=== PATIENT | female | born 1975 | race Caucasian/White ===

== ENCOUNTER 2017-10-28 12:43 | Inpatient (IN) | payer OTHER ==
[~2017-10-28] VITALS: Ht 157.5 cm; Wt 63.2 kg
[2017-10-28 13:43] LABS: BASOPHIL % 0.3 % (0-2); PLATELET COUNT 279 x10^3mcL (130-400); RED CELL DISTRIBUTION WIDTH 14.3 % (11.5-14.5)
[2017-10-28 14:05] LABS: CARBON DIOXIDE 26.2 mmol/L (21-32); CHLORIDE SERUM 105 mmol/L (98-107); CREATININE SERUM 0.7 mg/dL (0.6-1.0); GFR1 > 60 mL/min; GLUCOSE SERUM 92 mg/dL (74-106); POTASSIUM SERUM 4.2 mmol/L (3.5-5.1); SODIUM SERUM 137 mmol/L (136-145)
[2017-10-28 14:09] LABS: ALBUMIN 3.8 g/dL (3.4-5.0); ALKALINE PHOSPHATASE 96 U/L (46-116); ALT/SGPT 27 U/L (14-59); AMYLASE 87 U/L (25-115); AST/SGOT 24 U/L (15-37); BILIRUBIN TOTAL 0.22 mg/dL (0.20-1.00); CHOLESTEROL 194 mg/dL (<200); HDL CHOLESTEROL 39 mg/dL (40-60); LIPASE 214 IU/L (73-393); TOTAL PROTEIN, SERUM 7.3 g/dL (6.4-8.2)
[2017-10-28 14:27] LABS: UA SPECIFIC GRAVITY 1.025 (1.005-1.035); microscopic required? YES; urine erythrocyte TRACE (NEGATIVE)
[2017-10-28 14:37] LABS: AMPHETAMINE QUAL UR NONE DETECTED (NEG <=1000)
[2017-10-28 16:25] LABS: MAGNESIUM 2.2 mg/dL (1.8-2.4); PHOSPHOROUS 3.4 mg/dL (2.5-4.9)
[2017-10-28 16:39] LABS: T3 TOTAL 0.97 ng/mL
[2017-10-28 16:59] VITALS: BP 106/71
[2017-10-28 17:05] VITALS: Ht 157.5 cm; Wt 63.2 kg
[2017-10-28 17:29] LABS: FREE T4 0.98 ng/dL (0.76-1.46); FREE THYROXINE INDEX 2.8 ug/dL (1.4-4.5); T4(THYROXINE) 8.8 ug/dL (4.7-13.3)
[2017-10-28 20:57] VITALS: BP 93/42
[2017-10-29 05:51] VITALS: BP 97/53
[2017-10-29 06:13] LABS: CALCIUM 7.9 mg/dL (8.5-10.1); CARBON DIOXIDE 27.7 mmol/L (21-32); CHLORIDE SERUM 110 mmol/L (98-107); CREATININE SERUM 0.8 mg/dL (0.6-1.0); GFR1 > 60 mL/min; GLUCOSE SERUM 86 mg/dL (74-106); POTASSIUM SERUM 4.3 mmol/L (3.5-5.1); SODIUM SERUM 144 mmol/L (136-145)
[2017-10-29 06:22] LABS: BASOPHIL % 0.5 % (0-2); PLATELET COUNT 219 x10^3mcL (130-400); RED CELL DISTRIBUTION WIDTH 14.4 % (11.5-14.5)
[2017-10-29 09:15] VITALS: BP 99/96
[2017-10-29] MEDS ORDERED: NITROFURANTOIN100 MG PO (10:36)
[2017-10-29] MEDS ORDERED: LAC PO (10:36)
[2017-10-29] MEDS ORDERED: PRI20 PO (10:50)
[2017-10-29 11:16] VITALS: BP 99/96
== END 2017-10-29 12:15 | disposition home or self-care (01) | DRG 243 ==
LOC: ED 12:43 → DU 15:35
PROVIDERS: Emergency Medicine; Family Medicine
DX: K21.9 Gastro-esophageal reflux disease without esophagitis (principal); N17.0 Acute kidney failure with tubular necrosis; N39.0 Urinary tract infection, site not specified; R20.0 Anesthesia of skin
CPT/HCPCS: 83880; 84439; G0480; J0696; J1885; J2060; J7030; Q0092

== ENCOUNTER 2017-11-11 17:01 | Emergency (ER) | payer OTHER ==
[~2017-11-11] VITALS: Ht 157.5 cm; Wt 61.2 kg
[~2017-11-11 17:01] MED LIST: LAC PO; NITROFURANTOIN100 MG PO; PRI20 PO
[2017-11-11 17:05] VITALS: Ht 157.5 cm; Wt 61.2 kg
[2017-11-11 18:02] VITALS: BP 117/80
== END 2017-11-11 18:02 | disposition home or self-care (01) ==
LOC: ED 17:01
DX: N39.0 Urinary tract infection, site not specified (principal)
CPT/HCPCS: J1885; Q0162

== ENCOUNTER 2018-06-21 16:14 | Emergency (ER) | payer OTHER ==
[~2018-06-21] VITALS: Ht 167.6 cm; Wt 62.6 kg
[2018-06-21 16:31] VITALS: Ht 167.6 cm; Wt 62.6 kg
[2018-06-21 18:16] VITALS: BP 142/94
== END 2018-06-21 18:10 | disposition home or self-care (01) ==
LOC: ED 16:14
DX: T78.40XA Allergy, unspecified, initial encounter (principal); R03.0 Elevated blood-pressure reading, without diagnosis of hypertension; X58.XXXA Exposure to other specified factors, initial encounter
CPT/HCPCS: Q0163

== ENCOUNTER 2019-01-19 09:35 | Emergency (ER) | payer OTHER ==
[~2019-01-19] VITALS: Ht 157.5 cm; Wt 60.3 kg
[2019-01-19 09:38] VITALS: Ht 157.5 cm; Wt 60.3 kg
[2019-01-19 10:49] VITALS: BP 128/75
== END 2019-01-19 10:49 | disposition home or self-care (01) ==
LOC: ED 09:35
DX: H66.93 Otitis media, unspecified, bilateral (principal)

== ENCOUNTER 2019-02-04 12:59 | Inpatient (IN) | payer OTHER ==
[~2019-02-04] VITALS: Ht 157.5 cm; Wt 61.7 kg
[2019-02-04 13:12] VITALS: Ht 157.5 cm; Wt 61.7 kg
--- NOTE | 2019-02-04 13:37 | NUR ---
PT TO ED FOR EVAL OF LOWER ABD PAIN RADIATING TO L FLANK. ABD PAIN STARTED APPROX 1 WEEK AGO.. PT HAD BEEN ON FLAGYL FOR 2 WEEKS AND ENDED COURSE APPROX 01/27. FREQUENCY STARTED LAST NIGHT. DENIES PAIN WITH URINATION.
--- NOTE | 2019-02-04 13:40 | NUR ---
ER MD AT bedside for evaluations/assessments.viviane solis.adult female relative bedside.awaits revaluations.
--- NOTE | 2019-02-04 14:09 | NUR ---
IV access started aseptically with blood drawn/sent to lab,ivf started.iv meds given per er md ordewrs.pt tolerated procedures with no incidents.awaits test results,reevaluations.viviane solis.adult female friend bedside.
[2019-02-04 14:22] LABS: PLATELET COUNT 321 x10^3mcL (130-400)
[2019-02-04 14:32] LABS: RED CELL DISTRIBUTION WIDTH 14.7 % (11.5-14.5)
--- NOTE | 2019-02-04 14:38 | NUR ---
AMBULATED TO/FROM BATHROOM WITH SOME ASSIST.PT TOLERATED PROCEDURES WITH NO INCIDents.went to ct test area via wheelchair.aao,nad.await test results,reevaluations.adult female friend assisting.
--- NOTE | 2019-02-04 14:50 | NUR ---
BACK FROM CT VIA W/C.
[2019-02-04 14:51] LABS: BAND NEUTROPHIL 0 % (0-10); BASOPHIL 0 % (0-2); MONOCYTE 4 % (0-7); SEGMENTED NEUTROPHILS 65 % (37-75)
[2019-02-04 14:52] LABS: PLATELET MORPHOLOGY PLATELETS NORMAL; rbc morphology (normal/abnorm) NORMAL (NORMAL)
[2019-02-04 15:04] LABS: CALCIUM 8.3 mg/dL (8.5-10.1); CARBON DIOXIDE 25.6 mmol/L (21-32); CHLORIDE SERUM 105 mmol/L (98-107); GFR1 > 60 mL/min; GLUCOSE SERUM 84 mg/dL (74-106); POTASSIUM SERUM 3.7 mmol/L (3.5-5.1); SODIUM SERUM 141 mmol/L (136-145)
[2019-02-04 15:08] LABS: ALBUMIN 3.7 g/dL (3.4-5.0); ALKALINE PHOSPHATASE 90 U/L (46-116); ALT/SGPT 37 U/L (14-59); AMYLASE 78 U/L (25-115); AST/SGOT 28 U/L (15-37); BILIRUBIN TOTAL 0.27 mg/dL (0.20-1.00); LIPASE 167 IU/L (73-393); TOTAL PROTEIN, SERUM 7.6 g/dL (6.4-8.2)
--- NOTE | 2019-02-04 15:30 | NUR ---
PT AMBULATED TO/FROM BATHROOM ESCORTED BY ADULT FEMALE FRIEND.PT TOLERATED PROCEDURES WITH NON INCIDENTS.AWAITS ER MD REEVALUATIONS.CHAPARRITA ZURITA.
--- NOTE | 2019-02-04 16:15 | NUR ---
[facility]ADULT FEMALE FRIEND BEDSIDE.AWAITS REEVALUATIONS.
--- NOTE | 2019-02-04 16:29 | NUR ---
PT ENDORSED TO/ACCEPTED BY EVERARDO CARLTON.AWAITS TRANSPORT SERVICES,REEVALUATIONS.
--- NOTE | 2019-02-04 16:31 | NUR ---
RECEIVED REPORT FROM OJ IN ED. AWAITING PATIENT ARRIVAL TO FLOOR.
--- NOTE | 2019-02-04 16:35 | NUR ---
BELONGINGS OF PT TAKEN HOME BY ADULT FEMALE FRIEND.WITH PT PERMISSION.
[2019-02-04 16:40] LABS: CHOLESTEROL/HDL RATIO 5.2; PHOSPHOROUS 3.8 mg/dL (2.5-4.9)
[2019-02-04 16:57] VITALS: BP 108/64
--- NOTE | 2019-02-04 17:04 | NUR ---
RECEIVED PT FROM ER, PT ADMIT FOR INTRACTABLE ABD PAIN, INFECTIOUS DIARRHEA, PT IS A/O X4, VERBAL RESPONSIVE, LUNG SOUND CLEAR BILATERAL, NO COUGH, NO SOB PT DENY ANY CHEST PAIN OR DISCOMFORT, BOWEL SOUND PRESENT ALL 4 QUADRANTS, HYPERACTIVE, DISTENTED. C/O PAIN AT LEFT UPPER QUADRANT, ALSO C/O NAUSEA. PEDAL PULSE PRESENT BOTH FEET, NO EDEMA, IV AT RIGHT AC,NO LEAKING, NO INFILTRAITON. ALL ADLS ASSIST ALL NEED MET, CALL LIGHT IN REACH, WILL CONTINUE TO MONITOR.
[2019-02-04 17:49] LABS: FREE T4 1.03 ng/dL (0.76-1.46); FREE THYROXINE INDEX 2.5 ug/dL (1.4-4.5); T4(THYROXINE) 6.9 ug/dL (4.7-13.3)
[2019-02-04 17:50] LABS: T3 TOTAL 1.27 ng/mL
[2019-02-04 18:54] LABS: UA SPECIFIC GRAVITY <=1.005 (1.005-1.035); microscopic required? YES; urine erythrocyte 3+ (NEGATIVE)
--- NOTE | 2019-02-04 18:57 | NUR ---
DR CRARERA PAGED FOR PAIN MED. PT C/O ABD PAIN 10/15 AND INCREASING.
--- NOTE | 2019-02-04 19:29 | NUR ---
REPORT GIVEN TO YAZAN CARLTON. PATIENT RESTING IN BED C/O ABD PAIN 10/15. INFORMED PATIENT THAT WAS PAGED FOR PAIN MEDICATION. AWAITING ORDERS. ALL QUESTIONS AND CONCERNS ADDRESSED. ALL CARES ENDORSED.
[2019-02-04 19:36] LABS: AMPHETAMINE QUAL UR NONE DETECTED (See below)
--- NOTE | 2019-02-04 19:54 | NUR ---
RECIEVED PATIENT AT STAT OF SHIFT A/O X4, MS, NO SOB ON RA. REPORTING 5/10 ABDOMINAL PAIN THAT RADIATES TO HER BACK. ON CLEAR LIQ DIET, BUT EDUCATED ON NPO DIET AFTER MIDNIGHT FOR ULTRASOUND IN THE MORNING. ABDOMEN IS ROUND AND SOFT, BS HYPERACTIVE. STOOL SAMPLE STILL NEEDS TO BE OBTAINED. IV TO RAC IS INFUSING WITHOUT ERYTHEMA OR INFILTRATION. BED LOCKED AND IN LOWEST POSIITON. CALL LIGHT WITHIN REACH.
--- NOTE | 2019-02-04 20:11 | NUR ---
PATIENT GIVEN NORCO PER EMAR FOR REPORT OF 5/10 PAIN TO ABDOMEN RADIATING TO BACK.
[2019-02-04 21:00] VITALS: BP 119/73
--- NOTE | 2019-02-05 01:47 | NUR ---
PATIENT IS AWAKE REPORTING 4/10 ABDOMINAL PAIN. PATIENT STATES SHE DOES NOT WANT PAIN MEDICATION AT THIS TIME. IV INFUSING WELL WITHOUT ERYTHEMA OR INFILTRATION. CALL LIGHT WITHIN REACH.
[2019-02-05 05:30] VITALS: BP 112/55
--- NOTE | 2019-02-05 05:36 | NUR ---
PATIENT GIVEN NORCO PER EMAR FOR REPORT OF 5/10 PAIN TO HER ABDOMEN.
--- NOTE | 2019-02-05 05:37 | NUR ---
PATIENT REFUSES BENTYL BECAUSE SHE SAID IT MAKES HER STOMACH MORE UPSET.
--- NOTE | 2019-02-05 06:53 | NUR ---
PATIENT REPORTS RELIEF, RATED PAIN 3/10. PATIENT HAS BEEN NPO EXCEPT MEDS SINCE MIDNIGHT. IV INFUSING WITHOUT ERYTHEMA OR INFILTRATION. BED LOCKED AND IN LOWEST POSITION. CALL LIGHT WITHIN REACH.
[2019-02-05 07:11] LABS: BASOPHIL % 0.4 % (0-2); PLATELET COUNT 263 x10^3mcL (130-400)
[2019-02-05 07:18] LABS: CALCIUM 7.4 mg/dL (8.5-10.1); CARBON DIOXIDE 24.7 mmol/L (21-32); CHLORIDE SERUM 110 mmol/L (98-107); CREATININE SERUM 0.8 mg/dL (0.6-1.0); GFR1 > 60 mL/min; GLUCOSE SERUM 85 mg/dL (74-106); POTASSIUM SERUM 3.7 mmol/L (3.5-5.1); SODIUM SERUM 143 mmol/L (136-145)
--- NOTE | 2019-02-05 07:20 | NUR ---
ASSUMED CARE OF PATIENT THIS MORNING. NO COMPLAINTS OF PAIN OR DISCOMFORT. NO APPARENT DISTRESS NOTED. REMINDED OF NPO STATUS FOR US THIS AM. IV TO RAC PATENT AND INUFSING NS AT 100ML/HR. WILL CONTINUE TO MONITOR.
[2019-02-05 08:00] LABS: RED CELL DISTRIBUTION WIDTH 14.8 % (11.5-14.5)
--- NOTE | 2019-02-05 08:02 | NUR ---
PATIENT REPORTING MENSTRUAL CRAMPING, WARM BLANKET PROVIDED FOR COMFORT. ENDORSES HAVING STARTED PERIOD 2 DAYS AGO.
[2019-02-05 08:13] VITALS: BP 106/65
--- NOTE | 2019-02-05 11:29 | NUR ---
COMPLAINING OF 5/10 HEADACHE. PRN NORCO PROVIDED.
--- NOTE | 2019-02-05 13:29 | NUR ---
PATIENT REUFSING BENTYL DUE TO INCREASED GAS. NO COMPLAINTS OF ABDOMINAL PAIN OR N/V AT THIS TIME. NO NEW ISSUES.
--- NOTE | 2019-02-05 14:06 | NUR ---
COMPLAINING OF NAUSEA AND BACK PAIN. PRN ZOFRAN PROVIDED. DR.ZARINA WILDE FOR PAIN.
--- NOTE | 2019-02-05 14:40 | NUR ---
PRN TORADOL PROVIDED FOR 5/10 BACK PAIN.
--- NOTE | 2019-02-05 15:08 | NUR ---
STOOL SAMPLE COLLECTED AND SENT TO LAB
[2019-02-05 16:37] VITALS: BP 118/47
--- NOTE | 2019-02-05 18:42 | NUR ---
PATIENT IN ROOM WITH NO COMPLAINTS OF PAIN OR DISCOMFORT. NO APARENT DISTRESS NOTED. IV PATENT AND INFUSING NS AT 70ML/HR. WILL ENDORSE CARE TO ONCOMING RN.
--- NOTE | 2019-02-05 19:30 | NUR ---
RECIEVED PATIETN AT START OF SHIFT A/O X4. DENIES PAIN NO SOB ON RA. JUST REPORTS THAT SHE FEELS BLOATED AND DISTENDED. HER ABDOMEN APPEARS ROUND AND DISTENDED, BUT SOFT. BS HYPERACTIVE. PATIENT REPORTS 1 WATERY BM TODAY. IV TO RAC INFUSING WITHOUT ERYTHEMA OR INFILTRATION. BED LOCKED AND IN LOWEST POSIITON. CALL LIGHT AND BEDSDIE TABLE WITHIN REACH.
[2019-02-05 20:54] VITALS: BP 101/58
--- NOTE | 2019-02-05 23:23 | NUR ---
PATIENT IS AWAKE, STATING SHE HAS BEEN HAVING ARM AND LEG TWITCHES. PATIENTS LIMBS WERE EXAMINED, AND NO TWITCHING WAS VISUALIZED. NO SOB ON RA. NO COMPLAINT OF PAIN. WILL CONTINUE TO MONITOR.
[2019-02-06 06:12] VITALS: BP 105/54
--- NOTE | 2019-02-06 06:25 | NUR ---
PATIENT IS AWAKE. DENIES PAIN BUT STATES SHE FEELS GASSY AND WANTS TO POOP BUT CANT. PATIENT REQUESTED TO HAVE LAXATIVE. PATIENT HAS BEEN HAVING DIARRHEA EVERY DAY SINCE ADMISSION INCLUDING YESTERDAY AND WAS ADVISED AGAINST A LAXATIVE, AND SHE AGREED TO HOLD OFF ON IT.
--- NOTE | 2019-02-06 06:28 | NUR ---
IV IS INFUSING WITHOUT ERYTHEMA OR INFILTRATION. BED LOCKED AND IN LOWEST POSITION. CALL LIGHT AND BEDSIDE TABLE WITHIN REACH. WILL ENDORSE CARE TO DAYSHIFT NURSE.
[2019-02-06 07:21] LABS: PLATELET COUNT 252 x10^3mcL (130-400)
[2019-02-06 07:32] LABS: CALCIUM 7.5 mg/dL (8.5-10.1); CARBON DIOXIDE 23.8 mmol/L (21-32); CHLORIDE SERUM 111 mmol/L (98-107); CREATININE SERUM 0.8 mg/dL (0.6-1.0); GFR1 > 60 mL/min; GLUCOSE SERUM 91 mg/dL (74-106); MAGNESIUM 2.1 mg/dL (1.8-2.4); PHOSPHOROUS 3.1 mg/dL (2.5-4.9); POTASSIUM SERUM 3.8 mmol/L (3.5-5.1); SODIUM SERUM 143 mmol/L (136-145)
[2019-02-06 07:35] LABS: RED CELL DISTRIBUTION WIDTH 14.6 % (11.5-14.5)
--- NOTE | 2019-02-06 08:06 | NUR ---
AT 0710 - RECEIVED PATIENT FROM NIGHT NURSE. SLEEPING. RESPIRATIONS REGULAR. IV INFUSING NS AT 70 ML/HR. AT 0800 - AWAKE, ALERT AND OREITNED. SITTING UP IN BED EATING BREAKFAST. SEEN BY INEZ DOW. PLAN TO DC HOME TODAY.
[2019-02-06 08:31] LABS: BAND NEUTROPHIL 0 % (0-10); BASOPHIL 0 % (0-2); MONOCYTE 5 % (0-7); SEGMENTED NEUTROPHILS 75 % (37-75)
[2019-02-06 08:32] LABS: PLATELET MORPHOLOGY PLATELETS NORMAL; rbc morphology (normal/abnorm) ABNORMAL (NORMAL)
[2019-02-06 09:21] VITALS: BP 118/52
[2019-02-06 10:31] VITALS: BP 118/52
--- NOTE | 2019-02-06 10:55 | NUR ---
PATIENT TOLERATED 1 HR OF CLAPMED CATHETER. NOW ON FREE DRAINAGE.
--- NOTE | 2019-02-06 12:16 | NUR ---
PRINTED DISCHARGE INSTRUCTIONS GIVEN AND EXPLAINED TO PATIENT.IV CATHETER REMOVED INTACT. DISCHARGED HOME WITH FAMILY. TAKEN TO CAR IN WHEELCHAIR BY IS/IT PROJECT MANAGER.
== END 2019-02-06 12:17 | disposition home or self-care (01) | DRG 720 ==
LOC: ED 12:59 → MU 15:50
PROVIDERS: Specialist; ADMIT Internal Medicine
DX: A41.9 Sepsis, unspecified organism (principal); E83.51 Hypocalcemia; N12 Tubulo-interstitial nephritis, not specified as acute or chronic; K52.9 Noninfective gastroenteritis and colitis, unspecified; Z86.010 Personal history of colon polyps; Z68.24 Body mass index [BMI] 24.0-24.9, adult
CPT/HCPCS: 84439; 87046; 87046-59; C9113; G0378; J0696; J1885; J1956; J2405; J3010; J3490; J7030; Q0092; Q9967

== ENCOUNTER 2019-02-11 21:22 | Emergency (ER) | payer OTHER ==
[~2019-02-11] VITALS: Ht 154.9 cm; Wt 65.8 kg
[2019-02-11 21:32] VITALS: Ht 154.9 cm; Wt 65.8 kg
[2019-02-11 21:50] LABS: BASOPHIL % 0.5 % (0-2); PLATELET COUNT 349 x10^3mcL (130-400); RED CELL DISTRIBUTION WIDTH 14.5 % (11.5-14.5)
[2019-02-11 21:57] LABS: CALCIUM 8.7 mg/dL (8.5-10.1); CARBON DIOXIDE 24.9 mmol/L (21-32); CREATININE SERUM 1.1 mg/dL (0.6-1.0); POTASSIUM SERUM 3.3 mmol/L (3.5-5.1)
[2019-02-11 22:02] LABS: ALBUMIN 3.7 g/dL (3.4-5.0); BILIRUBIN TOTAL 0.19 mg/dL (0.20-1.00); TOTAL PROTEIN, SERUM 7.6 g/dL (6.4-8.2)
[2019-02-11 23:00] LABS: microscopic required? NO
[2019-02-11 23:22] LABS: urine erythrocyte NEGATIVE (NEGATIVE)
[2019-02-12 03:04] VITALS: BP 105/66
== END 2019-02-12 03:04 | disposition home or self-care (01) ==
LOC: ED 21:22
PROVIDERS: Emergency Medicine
DX: R10.9 Unspecified abdominal pain (principal); M54.9 Dorsalgia, unspecified
CPT/HCPCS: 36415; J2060; Q0092